=== PATIENT | female | born 1980 | race Caucasian/White ===

== ENCOUNTER 2024-03-05 16:47 | Emergency (ER) | payer OTHER, SELFPAY ==
[2024-03-05 16:49] VITALS: BP 122/77
[2024-03-05 18:33] VITALS: BMI 26.2
[2024-03-05 18:48] VITALS: BP 114/72
[2024-03-05] MEDS: PEPCID 20 MG IV (18:52)
[2024-03-05 19:00] VITALS: BP 111/71
[2024-03-05 19:06] LABS: % Basophils 0.8 % (0-2); % Eosinophils 1.8 % (0-6); % Immature Granulocytes 0.2 % (0-0.5); % Lymphocytes 26.9 % (20.5-51.1); % Monocytes 6.3 % (1.7-9.3); Absolute Basophils 0.1 10^3/uL (0-0.2); Absolute Eosinophils 0.1 10^3/uL (0-0.7); Absolute Lymphocytes 1.7 10^3/uL (1.2-3.4); Absolute Monocytes 0.4 10^3/uL (0.1-0.6); Hematocrit 27.5 % (37.0-47.0); Hemoglobin 8.5 g/dL (12.0-16.0); Mean Corp Hgb Conc. 30.9 g/dL (33.0-37.0); Mean Corpuscular Hgb 22.2 pg (27.0-31.0); Mean Corpuscular Volume 71.8 fL (81.0-99.0); Mean Platelet Volume 9.9 fL (7.4-10.4); Nucleated Red Blood Cells % 0 %; Platelet Count 403 10^3/uL (130-400); Red Blood Cell Count 3.83 10^6/uL (4.20-5.40); Red Cell Dist. Width 16.4 % (11.5-14.5); White Blood Cell Count 6.2 10^3/uL (4.8-10.8)
[2024-03-05 19:19] LABS: ALT (SGPT) 14 U/L (0-35); AST (SGOT) 22 U/L (14-36); Albumin 4.6 g/dl (3.5-5.0); Alkaline Phosphatase 52 U/L (38-126); Blood Urea Nitrogen 13 mg/dl (7-17); Calcium 9.4 mg/dl (8.4-10.2); Carbon Dioxide 24 mmol/L (22-30); Chloride 104 mmol/L (98-107); Estimated Creatinine Clearance 83 ml/min; Glucose 93 mg/dl (70-99); HCG, Serum Qualitative Screen Negative; Lipase 61 U/L (23-300); Potassium 4.1 mmol/L (3.5-5.1); Sodium 137 mmol/L (135-145); Total Bilirubin 0.5 mg/dl (0.2-1.3); Total Protein 7.3 g/dl (6.3-8.2); eGFR > 60.00
[2024-03-05 19:29] LABS: Troponin I < 0.012 ng/ml
--- NOTE | 2024-03-05 20:43 | ED.GENMED ---
History of Present Illness
General
Chief Complaint: Abdominal Symptoms
Source: patient
Exam Limitations: none
Time Seen by Provider: 03/05/24 18:07
Nursing documentation reviewed up to this point in time: agreed with
History of Present Illness
History of Present Illness:
44-year-old female past ministry of asthma migraines presenting to the emergency department today with concerns of epigastric abdominal discomfort going on over the past 5 days and a vomiting episode earlier today. She went to an urgent care was
sent to the ER for further assessment due to a mass in her stomach.
Review of Systems
Review of Systems
Allergies reviewed?: Yes
All Other Systems: ROS reviewed and negative except as documented in HPI and ROS
Phy Exam
Physical Exam
Physical Exam:
GENERAL: Alert , in no apparent distress
EYE: pupils equal and reactive
NECK: Supple, no significant adenopathy.
ENT: o/p clr, mmm.
CARDIAC: Regular rate and rhythm .
LUNGS: Clear breath sounds bilaterally, no acute respiratory distress, no wheezes/rales/rhonchi
ABDOMEN: Mild tenderness to the right lower quadrant of the abdomen otherwise soft, without focal tenderness, no r/g, no cvat
NEUROLOGICAL: Alert and oriented, no focal neuro deficits
SKIN: Warm and dry, skin intact.
MUSCULOSKELETAL: No edema, well perfused.
PSYCH: Normal and appropriate interaction.
Course
Orders/Labs/Results
Orders:
Orders
03/05/24 16:53
Test Result ONCE
03/05/24 18:26
CT Abd/Pel (IV only)-DH only Urgent
Comment:
Reason For Exam: rlq pain
Famotidine [Pepcid] 20 mg IV NOW STA
03/05/24 18:27
Test Result ONCE
03/05/24 18:51
EKG [Electrocardiogram (*1)] Urgent
Reason for Study: Other
Other Reason for Exam: burning in chest
EKG- Treatment ONCE
03/05/24 18:52
Complete Blood Count/With Diff Urgent
Comprehensive Metabolic Panel Urgent
HCG, Serum Qualitative Screen Urgent
Lipase Urgent
Troponin I Urgent
03/05/24 21:15
Urinalysis Reflex To Culture Urgent
Date Specimen was Collected: 03/05/24
Time Specimen was Collected: 21:13
Abnormal Lab Results
03/05/24
18:52
RBC 3.83 L 10^6/uL
(4.20-5.40)
Hgb 8.5 L g/dL
(12.0-16.0)
Hct 27.5 L %
(37.0-47.0)
MCV 71.8 L fL
(81.0-99.0)
MCH 22.2 L pg
(27.0-31.0)
MCHC 30.9 L g/dL
(33.0-37.0)
RDW 16.4 H %
(11.5-14.5)
Plt Count 403 H 10^3/uL
(130-400)
03/05/24 18:52
03/05/24 18:52
Vital Signs
Initial and Last Documented VS:
Initial Vital Signs
Temp Pulse Resp BP Pulse Ox
98.0 F 76 18 122/77 100
03/05/24 16:49 03/05/24 16:49 03/05/24 16:49 03/05/24 16:49 03/05/24 16:49
Last Documented Vital Signs
Temp Pulse Resp BP Pulse Ox
98.0 F 76 18 122/77 100
03/05/24 16:49 03/05/24 16:49 03/05/24 16:49 03/05/24 16:49 03/05/24 16:49
MDM/Problems Addressed
MDM/Problems Addressed:
44-year-old female presenting to the emergency department today with concerns of 5 days of upper abdominal pain went to an urgent care today was found to have some tenderness to the right lower quadrant sent to the ER. Upon arrival vital signs are
normal. No white count but patient hemoglobin 8.5 which is a new anemia that she was unaware of. She claims that she has had heavier vaginal bleeding than usual over the past few months. Otherwise labs unremarkable troponin negative EKG normal CT
scan of the abdomen showing a right-sided uterine fibroid. This potentially could be causing patient's symptoms but it could be causing patient's anemia as well. Patient is not currently bleeding no acute pelvic discomfort at this time. Patient
was started on iron and advised for very close follow-up with gynecology as well as reassessment of her labs. Return precautions given.
*Critical Care Note
Total Time (30-74mins, 75-104mins- exclusive of procedures): Not Applicable
ED Attending Note
-
Portions of this chart may have been created with voice recognition software.� Occasional wrong word or��sound alike� substitutions may have occurred due to the inherent limitations of voice recognition software.
Discharge Plan
Departure
Patient Disposition: Home (Routine Discharge)
Date of Disposition: 03/05/24
Time of Disposition: 21:34
Patient with high blood pressure during this ER visit?: No
Condition: Good
Covid-19: Not Applicable
Discharge Problem:
Anemia, Fibroid, uterine
Instructions: Uterine fibroids, Anemia, Possibly From Low Iron, Adult ED
Prescriptions:
New
ferrous sulfate 325 mg (65 mg iron) tablet
325 mg PO BID Qty: 20 0RF
No Action
ciprofloxacin HCl 500 MG tablet
500 mg PO BID 7 Days Qty: 14 0RF
Referrals:
Devaughn Shankar DO [Family Provider] -
Activity Restrictions/Additional Instructions:
You came to the emergency department today with concerns of abdominal symptoms. Here you had normal vital signs you are found to have a low hemoglobin of 8.5 which was lower than previous numbers. This could be from your fibroid. Please take iron
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 Return to the emergency department for any worsening, new or concerning symptoms.
Interventions
Interventions:
*Risk Screen - Suicide Last Done: 03/05/24 16:52
*General Assessment Last Done: 03/05/24 16:49
*Neglect/Abuse Screening Last Done: 03/05/24 16:52
ED- Fall Risk Assessment Last Done: 03/05/24 18:50
*ED COVID-19 Vaccine History Last Done: 03/05/24 16:49
QW-Nlkyzv-Crehxljscx Assessment Last Done: 03/05/24 18:33
Discharge Date and Time
Print Language: ARMENIAN
[2024-03-05 21:08] VITALS: BP 121/82
[2024-03-05 21:23] LABS: Urine Albumin Negative (Neg - Trace); Urine Bilirubin Negative (Negative); Urine Character Clear (Clear); Urine Color Yellow; Urine Glucose Negative (Negative); Urine Ketone Negative (Negative); Urine Leukocyte Negative (Negative); Urine Nitrite Negative (Negative); Urine Occult Blood Negative (Negative); Urine Urobilinogen Negative (Neg - 1+)
== END 2024-03-05 22:36 | disposition home or self-care (01) ==
LOC: EMR 16:47
PROVIDERS: Emergency Medicine; Physician Assistant; EMERGENCY PHYSICIAN Emergency Medicine; FAMILY PHYSICIAN Family Medicine
DX: D64.9 Anemia, unspecified (principal); D25.9 Leiomyoma of uterus, unspecified; J45.909 Unspecified asthma, uncomplicated
CPT/HCPCS: 99284; 96374; 74177; 80053; 81003; 83690; 84484; 84703; 85025; 93005; Q9967